=== PATIENT | female | born 1945 | race Caucasian/White ===

== ENCOUNTER 2018-08-04 08:25 | Emergency (ER) | payer MEDICARE ==
[2018-08-04] MEDS ORDERED: traMADol TAB* 50 MG PO ONE (09:03)
[2018-08-04] MEDS ORDERED: Morphine VIAL* 4 MG/ML VIAL (1 ml vial) IV ONE (10:00)
[2018-08-04] MEDS ORDERED: fentaNYL* 50 MCG/ML 2 ML VIAL (100 MCG VIAL) IV SLOW PU ONE (10:44)
[2018-08-04] MEDS ORDERED: Propofol* 10 MG/ML 20 ML BTL IV PUSH ONE (11:42)
[2018-08-04] MEDS ORDERED: Propofol* 500 MG/50 ML BTL ONE (11:47)
--- NOTE | 2018-08-04 13:30 | ED ---
Upper Extremity Pain - HPI Summary HPI Summary: The patient is a 72-year-old female presenting to the ED s/p mechanical fall this morning. She states she tripped stepping up on her porch when she fell and hit her nose and R shoulder. She endorses radiation of pain from the right shoulder to the fingertips, aching and stabbing intermittently. She has been unable to move the shoulder since that time. She denies any pain to the nose. Denies numbness or tingling, ecchymosis or erythema. There is no evidence of trauma. - History of Current Complaint Chief Complaint: EDExtremityUpper Stated Complaint: FALL/RIGHT ARM AND SHOULDER PAIN/NOSE INJURY Time Seen by Provider: 08/04/18 08:33 Hx Obtained From: Patient Mechanism Of Injury: Blunt Trauma Onset/Duration: Started Hours Ago Timing: Constant Severity Initially: Severe Severity Currently: Severe Pain Location: Shoulder Character: Aching Aggravating Factor(s): Movement, Flexion, Extension, Internal/External Rotation Alleviating Factor(s): Rest Associated Signs & Symptoms: Negative: Swelling, Redness, Bruising, Weakness, Numbness/Tingling, Neck Pain, Diaphoresis, Nausea, Vomiting Related History: Dominant Hand Right - Risk Factors Non-Orthopedic Risk Factor: Negative DVT Risk Factors: Negative Septic Arthritis Risk Factor: Negative Compartment Syndrome Risk Factors: Pain - Allergies/Home Medications Allergies/Adverse Reactions: Allergies Allergy/AdvReac Type Severity Reaction Status Date / Time No Known Allergies Allergy Verified 12/24/16 09:29 Home Medications: Home Medications Atorvastatin* [Lipitor 80 MG*] 40 mg PO BEDTIME 08/04/18 [History Confirmed 07/12] Co Q-10 200 mg DAILY 08/04/18 [History Confirmed 08/04/18] Enalapril (NF) 10 mg DAILY 08/04/18 [History Confirmed 08/04/18] Furosemide 20 mg DAILY 08/04/18 [History Confirmed 08/04/18] Klor-Con M20 1 tab DAILY 08/04/18 [History Confirmed 08/04/18] PMH/Surg Hx/FS Hx/Imm Hx Previously Healthy: Yes Endocrine/Hematology History: Denies: Hx Diabetes Cardiovascular History: Denies: Hx Angina, Hx Coronary Artery Disease, Hx Hypercholesterolemia, Hx Hypertension, Hx Myocardial Infarction, Hx Valvular Heart Disease Respiratory History: Denies: Hx Asthma, Hx Chronic Obstructive Pulmonary Disease (COPD) History: Denies: Hx Renal Disease Sensory History: Denies: Hx Contacts or Glasses, Hx Hearing Aid Opthamlomology History: Denies: Hx Contacts or Glasses - Surgical History Surgery Procedure, Year, and Place: 3 - C-sections - Immunization History Date of Tetanus Vaccine: unknown Date of Influenza Vaccine: none Hx Pertussis Vaccination: No Immunizations Up to Date: Yes Infectious Disease History: No Infectious Disease History: Denies: Traveled Outside the [place] in Last 30 Days - Family History Known Family History: Positive: Cardiac Disease Family History: FHx of CVA - Social History Occupation: Unemployed Lives: With Family Alcohol Use: Rare Hx Substance Use: No Substance Use Type: Reports: None Hx Tobacco Use: Yes Smoking Status (MU): Former Smoker Review of Systems Constitutional: Negative Negative: Fever, Chills, Fatigue, Skin Diaphoresis Negative: Palpitations, Chest Pain Negative: Shortness Of Breath, Cough Genitourinary: Negative Positive: no symptoms reported, see HPI Positive: Arthralgia - right shoulder pain Negative: Headache, Weakness, Paresthesia, Numbness Psychological: Normal All Other Systems Reviewed And Are Negative: Yes Physical Exam Triage Information Reviewed: Yes Vital Signs On Initial Exam: Initial Vitals Temp Pulse Resp BP Pulse Ox 97.0 F 66 18 148/76 99 08/04/18 08:28 08/04/18 08:28 08/04/18 08:28 08/04/18 08:28 08/04/18 08:28 Vital Signs Reviewed: Yes Appearance: Positive: Well-Appearing, Well-Nourished Skin: Positive: Warm Head/Face: Positive: Normal Head/Face Inspection Eyes: Positive: EOMI, YANDY, Conjunctiva Clear Neck: Positive: No Lymphadenopathy Respiratory/Lung Sounds: Positive: Clear to Auscultation, Breath Sounds Present Cardiovascular: Positive: RRR, Pulses are Symmetrical in both Upper and Lower Extremities Musculoskeletal: Positive: Pain @ - R shoulder pain, Other - unable to externally rotate - sulcus noted on exam Neurological: Positive: Speech Normal Psychiatric: Positive: Affect/Mood Appropriate AVPU Assessment: Alert Diagnostics - Vital Signs Vital Signs Temp Pulse Resp BP Pulse Ox 08/04/18 13:05 68 145/67 98 08/04/18 13:00 64 96 08/04/18 12:50 63 135/91 98 08/04/18 12:36 61 147/87 99 08/04/18 12:32 62 146/75 97 08/04/18 12:26 59 156/75 97 08/04/18 12:22 60 142/72 98 08/04/18 12:16 62 149/79 98 08/04/18 12:12 63 128/73 100 08/04/18 12:07 60 147/79 99 08/04/18 12:02 64 161/84 100 08/04/18 12:00 63 99 08/04/18 11:56 65 128/81 97 08/04/18 11:52 60 159/67 100 08/04/18 11:47 65 164/79 99 08/04/18 11:35 60 168/75 94 08/04/18 11:20 57 150/75 94 08/04/18 11:05 58 144/98 94 08/04/18 11:00 63 95 08/04/18 10:57 18 08/04/18 10:50 62 159/84 95 08/04/18 10:32 63 18 97 08/04/18 08:28 97.0 F 66 18 148/76 99 - Laboratory Lab Statement: Any lab studies that have been ordered have been reviewed, and results considered in the medical decision making process. Course/Dx - Course Course Of Treatment: Drink was treatment, the patient is evaluated for right shoulder injury and right nose injury. On physical examination, the nose is palpated without discomfort and no deformity is noted. She denies any blood thinners or hitting her head otherwise. She denies any LOC. Endorses right anterior shoulder pain radiating to the fingertips. Arm is positioned in internal rotation. Xray obtained which shows an anterior inferior dislocation with a probable Hill-Sachs impaction fracture. Attempted to reduce fracture using traction countertraction technique without the use of conscious sedation. Patient was given morphine 4 mg and fentanyl 25 mg. Patient was unable to continue with attempting and requests conscious sedation. Conscious sedation performed by Dr. Velazquez (see progress note). Attempt #2 at reduction again using [id number]-[id number] technique. Full range of motion and no step- off noted. Appears to be reduced successfully. However, postreduction x-rays shows a persistent dislocation of the right shoulder. At this time, discussed with Dr. George who suggests CT of the shoulder. CTA obtained which shows postreduction successful. Kiah Rincon PA-C to see patient in the ED. Also, Dr. George to see patient and go back in the ED who agrees with CT findings. Patient will be discharged with sling and shoulder reduction pendulum exercises. She will follow-up with Dr. George next week. Tramadol 50 mg 3 times daily prescribed. Patient acting appropriately, alert and oriented on discharge. - Diagnoses Differential Diagnosis/HQI/PQRI: Positive: Fracture (Open), Fracture (Closed), Other - dislocation Provider Diagnoses: Shoulder dislocation - Physician Notifications Discussed Care of Patient With: Pamela George Instructed by Provider To: MD Will See In ED Discharge - Sign-Out/Discharge Documenting (check all that apply): Patient Departure - Discharge Plan Condition: Stable Disposition: HOME Prescriptions: traMADol TAB* [Ultram*] 50 mg PO Q8H PRN #12 tab MDD 3 PRN Reason: Pain Patient Education Materials: Shoulder Dislocation Exercises (GEN), Shoulder Dislocation (ED) Referrals: Renata Goldstein MD [Primary Care Provider] - Additional Instructions: You will follow up with Dr. George next week Continue with sling until your follow up However, you should be performing gentle exercises: Gentle pendular motion exercises should be performed during the immobilization period to reduce the risk of frozen shoulder. Anterior exercises, place her arm back into the sling Do not shower with the sling in place Tramadol 50 mg up to 3 times daily as needed for discomfort - Billing Disposition and Condition Condition: STABLE Disposition: Home
[2018-08-04 15:06] VITALS: BP 148/78
--- NOTE | 2018-08-04 15:43 | CONS ---
ORTHOPEDIC CONSULTATION NOTE: DATE OF CONSULT: 08/04/18 CHIEF COMPLAINT: Right shoulder pain. HISTORY OF PRESENT ILLNESS: Ms. Young is a 72-year-old right-hand dominant female who fell going u p her steps while carrying her dog this morning. She fell on an outstretched right arm. She immedia tely had pain and deformity. This was 10/10 sharp pain in the right arm. Any attempt to move the ar m increased her pain, only immobilization decreased her pain. She was brought to [facility] er and diagnosed with a right shoulder dislocation. Emergency room staff called me because multiple attempts at reduction were not deemed to be successfu l. I requested a CT scan before I took her to the operating room for reduction. I am seeing the patient in the ED for this consultation. She has 2/10 pain in the right shoulder, fe els that her shoulder pain is much improved. She is in a shoulder immobilizer. The patient denies loss of consciousness with the fall. She did scrape her face when she fell. She denies pain elsewhere. PAST MEDICAL HISTORY: Hyperlipidemia, hypertension. PAST SURGICAL HISTORY: x3. HOME MEDICATIONS: 1. Lipitor 40 mg p.o. q.h.s.. 2. Coenzyme Q 200 mg p.o. daily. 3. Enalapril 10 mg p.o. daily. 4. Furosemide 20 mg p.o. daily. 5. Klor-Con 20 mEq 1 tab p.o. daily. ALLERGIES: No known drug allergies. FAMILY HISTORY: Heart disease, CVA. SOCIAL HISTORY: The patient lives alone. She has a nearby sister. She lives with her dog. She is right-hand dominant. Normally an independent ambulator. REVIEW OF SYSTEMS: Fourteen systems reviewed with the patient today. Positive for recent fall, righ t shoulder pain, some facial trauma. Negative for fevers, chills, chest pain, shortness of breath, n ausea, vomiting, headache, or dizziness. Otherwise, the patient reports review of systems is negative or not relevant. PHYSICAL EXAM: Vitals: Temperature 97, pulse 66, blood pressure 148/76. General: The patient is a well-nourished female, in no apparent distress. Alert and oriented x3, pleasant mood and appropriate affect. Gait: The patient's gait is not assessed. HEENT: The patient has small superficial abras ions along her nose and cheek. No periorbital ecchymosis. Alert and oriented x3. Pleasant mood and appropriate affect. Accompanied by a supportive sister at the bedside. Right Upper Extremity: The patient's skin is intact. No abrasions or open wounds. She has normal contour of the shoulder. Mo tion of the shoulder does cause some pain. She is in a shoulder immobilizer. There is tenderness to palpation along the anterior shoulder. She has sensation over the deltoid. No tenderness to palpati on at the elbow or wrist. She flexes and extends the wrist. 4+/5 service order expediter strength. Full sensation to l ight touch in all nerve distributions and 2+ palpable radial pulse. RADIOGRAPHS: Multiple radiographs show dislocated right glenohumeral joint. I also have a CT scan s howing that the glenohumeral joint is reduced in multiple views. The humeral head is reduced on the glenoid. There is Hill-Sachs fracture deformity noted. No obvious humeral shaft fracture. ASSESSMENT AND PLAN: Ms. Young is a 72-year-old right hand dominant female, status post fall with the right shoulder dislocation. This has been reduced presumably by the ED staff. CT scan confirms that the shoulder is reduced. I discussed this with the patient at length. She does not need to be taken to the OR for further reduction and she understands this. She is happy about this. We discussed shoulder dislocation precautions. She will be in a shoulder immobilizer at all times fo r now. She will be no lifting or weightbearing on the right upper extremity. She may come out of [facility] immobilizer 3 times a day for elbow and wrist range of motion. She may come out at the wrist for ru amador at her request. She will have the anti-inflammatories, p.r.n. analgesia. I would [facility]. [id number]/[facility] #: [id number]
--- NOTE | 2018-08-04 20:26 | ED ---
Progress - Progress Note Progress Note: I supervised the care of the physician hotel assistant general manager and I performed history and physical on this patient. History: Fall with injury to the right shoulder, dominant right arm. Physical exam: Deformity with step-off at the right lateral shoulder. Extremity neurovascularly intact. Patient alert and oriented Plan: Close reduction under procedural sedation for inferior dislocation I personally performed the sedation procedure for this patient and I supervised the close reduction of the shoulder which I assisted in. Procedural sedation: The patient received formal consent for both sedation and the closed reduction. A timeout was performed. The patient was placed on complete cardiovascular monitoring including end-tidal CO2 monitoring. She was given 75 mg of IV propofol push by me with adequate sedation. Attempted reduction was made at that time by the physician hotel assistant general manager which failed to reduce the dislocation. The patient woke up largely and had to be re-sedated. She was given a second dose of 50 mg of IV propofol push by me. This provided adequate sedation. The physician hotel assistant general manager was able to reduce the shoulder with my assistance on the second attempt. There is some concern for possible subluxation and so a CT scan was performed following the procedure. TOTAL SEDATION TIME WAS 10 MINUTES. Patient tolerated this well without complication. Course/Dx - Course Course Of Treatment: Drink was treatment, the patient is evaluated for right shoulder injury and right nose injury. On physical examination, the nose is palpated without discomfort and no deformity is noted. She denies any blood thinners or hitting her head otherwise. She denies any LOC. Endorses right anterior shoulder pain radiating to the fingertips. Arm is positioned in internal rotation. Xray obtained which shows an anterior inferior dislocation with a probable Hill-Sachs impaction fracture. Attempted to reduce fracture using traction countertraction technique without the use of conscious sedation. Patient was given morphine 4 mg and fentanyl 25 mg. Patient was unable to continue with attempting and requests conscious sedation. Conscious sedation performed by Dr. Velazquez (see progress note). Attempt #2 at reduction again using [id number] technique. Full range of motion and no step- off noted. Appears to be reduced successfully. However, postreduction x-rays shows a persistent dislocation of the right shoulder. At this time, discussed with Dr. George who suggests CT of the shoulder. CTA obtained which shows postreduction successful. Kiah Rincon PA-C to see patient in the ED. Also, Dr. George to see patient and go back in the ED who agrees with CT findings. Patient will be discharged with sling and shoulder reduction pendulum exercises. She will follow-up with Dr. George next week. Tramadol 50 mg 3 times daily prescribed. Patient acting appropriately, alert and oriented on discharge. - Diagnoses Provider Diagnoses: Shoulder dislocation - Provider Notifications Instructed by Provider To: MD Will See In ED Discharge - Sign-Out/Discharge Documenting (check all that apply): Patient Departure - Discharge Plan Condition: Stable Disposition: HOME Prescriptions: traMADol TAB* [Ultram*] 50 mg PO Q8H PRN #12 tab MDD 3 PRN Reason: Pain Patient Education Materials: Shoulder Dislocation Exercises (GEN), Shoulder Dislocation (ED) Referrals: Renata Goldstein MD [Primary Care Provider] - Additional Instructions: You will follow up with Dr. George next week Continue with sling until your follow up However, you should be performing gentle exercises: Gentle pendular motion exercises should be performed during the immobilization period to reduce the risk of frozen shoulder. Anterior exercises, place her arm back into the sling Do not shower with the sling in place Tramadol 50 mg up to 3 times daily as needed for discomfort - Billing Disposition and Condition Condition: STABLE Disposition: Home - Attestation Statements Document Initiated by Dimitrios: No
== END 2018-08-04 14:55 | disposition home or self-care (01) ==
LOC: ED 08:25
DX: S43.004A Unspecified dislocation of right shoulder joint, initial encounter (principal); W01.0XXA Fall on same level from slipping, tripping and stumbling without subsequent striking against object, initial encounter; Y92.9 Unspecified place or not applicable; Z87.891 Personal history of nicotine dependence
CPT/HCPCS: 96374; 96375; 99285; A9270-GY; J2270; J2704; J3010